=== PATIENT | male | born 1990 | race African-American/Black ===

== ENCOUNTER 2016-10-11 09:02 | Emergency (ER) | payer MEDICAID ==
[~2016-10-11] VITALS: Ht 182.9 cm; Wt 86.2 kg
--- NOTE | 2016-10-11 09:18 | NUR ---
MSE COMPLETED, PT D/C'D HOME, ACI/RX X1 GIVEN. PT AMBULATED W/O DIFF/TOOK ALL BELONGIM=NGS.
--- NOTE | 2016-10-11 09:19 | NUR ---
Patient discharged to home in stable conditon. Written and verbal after care instructions given. Patient verbalizes understanding of instructions.
== END 2016-10-11 09:19 | disposition home or self-care (01) ==
LOC: ER 09:02
DX: S16.1XXA Strain of muscle, fascia and tendon at neck level, initial encounter (principal); S29.012A Strain of muscle and tendon of back wall of thorax, initial encounter; S39.012A Strain of muscle, fascia and tendon of lower back, initial encounter; V49.9XXA Car occupant (driver) (passenger) injured in unspecified traffic accident, initial encounter; Y93.89 Activity, other specified; Y99.8 Other external cause status; Y92.411 Interstate highway as the place of occurrence of the external cause
CPT/HCPCS: 99283; A4663

== ENCOUNTER 2016-11-03 14:09 | Emergency (ER) | payer MEDICAID ==
[~2016-11-03] VITALS: Ht 182.9 cm; Wt 86.2 kg
--- NOTE | 2016-11-03 14:52 | NUR ---
PT IS IN ROOM #2B. DR NORTON EVALUATED THE PT.
--- NOTE | 2016-11-03 15:11 | NUR ---
PT WAS D/C TO HOME. D/C INSTRUCTIONS GIVEN TO THE PT.
[2016-11-03 15:13] VITALS: BP 132/76
== END 2016-11-03 15:13 | disposition home or self-care (01) ==
LOC: ER 14:09
DX: S16.1XXA Strain of muscle, fascia and tendon at neck level, initial encounter (principal); F17.200 Nicotine dependence, unspecified, uncomplicated; V49.69XA Unspecified car occupant injured in collision with other motor vehicles in traffic accident, initial encounter; Y93.89 Activity, other specified; Y99.8 Other external cause status; Y92.89 Other specified places as the place of occurrence of the external cause; F10.20 Alcohol dependence, uncomplicated
CPT/HCPCS: A4663